=== PATIENT | female | born 1945 | race Caucasian/White ===

== ENCOUNTER → 2018-07-29 10:34 | Outpatient (CLI) | payer MEDICARE, SELFPAY ==
[2018-07-29 11:41] LABS: Add Manual Diff / Slide Review NO; Basophils Percent Auto 0.8 % (0-2); Eosinophils Percent Auto 4.5 % (2-4); Hematocrit 41.3 % (36-46); Hemoglobin 14.2 g/dL (12.0-16.0); Lymphocytes Percent Auto 41.5 % (25-40); Mean Corpuscular HGB Conc 34.3 % (30-36); Mean Corpuscular Hemoglobin 31.5 PG (26-34); Mean Corpuscular Volume 91.8 fL (80-100); Neutrophils Absolute Auto 2200 /uL (3000-5900); Neutrophils Percent Auto 45.2 % (50-75); Platelet Count 266 X10^3/uL (150-400); Red Cell Distribution Width 14.7 % (11.6-14.8); White Blood Cell Count 4.8 X10^3/uL (4.5-11.0)
[2018-07-29 11:54] LABS: Alanine Aminotransferase 21 IU/L (9-52); Albumin 4.7 g/dL (3.5-5.0); Albumin Globulin Ratio 1.6 (1.0-2.8); Alkaline Phosphatase 48 U/L (38-126); Aspartate Aminotransferase 37 IU/L (14-36); BUN Creatinine Ratio 21.3 (6-22); Bilirubin Total 1.7 mg/dL (0.2-1.3); Blood Urea Nitrogen 17 mg/dL (7-17); Carbon Dioxide 30 mmol/L (22-32); Chloride 100 mmol/L (98-107); Cholesterol 155 mg/dL (140-199); Estimated Glomerular Filt Rate > 60.0 mL/min (>60); Globulin 2.9 g/dL (1.7-4.1); Glucose 95 mg/dL (80-110); HDL Cholesterol 58 mg/dL (40-60); LDL Cholesterol Calculated 77 mg/dL (<100); Potassium 4.4 mmol/L (3.4-5.1); Sodium 143 mmol/L (137-145); Total Protein 7.6 g/dL (6.3-8.2); Triglycerides 101 mg/dL (35-150)
[2018-07-29 11:59] LABS: HEMOLYSIS 65 (0-50)
== END ==
PROVIDERS: PCP Family Medicine; Visit Provider Family Medicine
DX: E78.2 Mixed hyperlipidemia (principal); I10 Essential (primary) hypertension
CPT/HCPCS: 36415; 80053; 80061; 84443; 85025

== ENCOUNTER → 2018-08-07 10:42 | Outpatient (CLI) | payer MEDICARE, SELFPAY ==
--- NOTE | 2018-08-07 | DI.MG.S_ITS ---
BILATERAL DIGITAL SCREENING MAMMOGRAM 3D/2D WITH CAD: 08/07/2018 CLINICAL: Routine screening. Comparison is made to exams dated: 07/17/2017 mammogram, 05/15/2016 mammogram, and 05/02/2015 mammogram - [facility]. There are scattered fibroglandular elements in both breasts. Current study was also evaluated with a Computer Aided Detection (CAD) system. No significant masses, calcifications, or other findings are seen in either breast. There has been no significant interval change. IMPRESSION: NEGATIVE There is no mammographic evidence of malignancy. A 1 year screening mammogram is recommended. This exam was interpreted at Station ID: [id number]. NOTE: For mammograms, a report in lay terms will be sent to the patient. Approximately 15% of breast malignancies will not be visualized mammographically. In the management of a palpable breast mass, a negative mammogram must not discourage biopsy of a clinically suspicious lesion. Electronically Signed By: Waleska escobar/tony:08/09/2018 08:17:08 letter sent: Normal Exam ACR BI-RADS Category 1: Negative [id number]
== END ==
PROVIDERS: Family Provider Family Medicine; PCP Family Medicine; Visit Provider Family Medicine
DX: Z12.31 Encounter for screening mammogram for malignant neoplasm of breast (principal)
CPT/HCPCS: 77063; 77067

== ENCOUNTER → 2018-10-08 16:16 | Outpatient (CLI) | payer MEDICARE, SELFPAY | PROVIDERS: Family Provider Family Medicine; PCP Family Medicine; Visit Provider Physician Assistant | DX: N39.0 Urinary tract infection, site not specified (principal) | CPT/HCPCS: 87086 ==

== ENCOUNTER → 2018-10-19 15:35 | Outpatient (CLI) | payer MEDICARE, SELFPAY ==
[2018-10-19 16:27] LABS: Appearance Urine UA SL CLOUDY; Bilirubin Urine UA NEGATIVE (NEGATIVE); Color Urine UA YELLOW; Glucose Urine UA NEGATIVE (Normal); Ketones Urine UA TRACE (NEGATIVE); Leukocyte Esterase Urine UA NEGATIVE (NEGATIVE); Nitrite Urine UA POSITIVE (Negative); Occult Blood Urine UA NEGATIVE (Negative); Protein Urine UA NEGATIVE (Negative); Specific Gravity Urine UA 1.015 (1.000-1.035); Urobilinogen Urine UA 0.2 E.U./dL (0.2)
[2018-10-19 16:47] LABS: Bacteria Urine Many (>30); Culture Indicated Urine Specimen Cultured; RBC Urine 0-1/HPF (0-5/HPF); Squamous Epithelial Cell Urine 0-1 /HPF; WBC Urine 1-5/HPF (0-5/HPF)
== END ==
PROVIDERS: Family Provider Family Medicine; PCP Family Medicine; Visit Provider Family Medicine
DX: N34.3 Urethral syndrome, unspecified (principal)
CPT/HCPCS: 81001; 87077; 87086; 87186

== ENCOUNTER 2018-12-02 07:27 | Day surgery (SDC) | payer MEDICARE, SELFPAY ==
--- NOTE | 2018-12-02 | PATH_ITS ---
[facility] Accession Number: [id number] . 01 Material submitted: . BIOPSY AT 30CM . 02 Diagnosis: Colon, Biopsy at 30 cm: Tubular adenoma. MRV/12/03/2018 . 02 Electronically signed: . Elisa Rhodes MD, Pathologist NPI- [id number] . 01 Gross description: . Received one formalin-filled container labeled with the patient's name and labeled biopsy at 30 cm. The specimen consists of a 0.3 cm portion of tissue, entirely submitted in one cassette. ([id number]) /FRR . 02 Pathologist provided ICD-10: D12.6 . 02 CPT . 122943 Performed at: 01 [facility] [address] [address] [id number] MD Jerson Bernal MD Phone: [phone] Performed at: 02 [facility] [address] [place], [place] [id number] MD Elisa Rhodes MD Phone: [phone]
[2018-12-02 08:52] VITALS: BP 148/71; PULSE 77; RESP 15; TEMP 36.6; O2SAT 95; BMI 24.2
[2018-12-02] MEDS: SODIUM CHLORIDE 0.9% 1,000 ML 200 ML IV (09:30)
--- NOTE | 2018-12-02 10:33 | PM.HP.1 ---
History of Present Illness Date Patient Seen: 12/02/18 Time Patient Seen: 10:33 Chief complaint: [id number] SCREENING COLONOSCOPY Narrative: Wonderful 73 year old lady who presents for screening colonoscopy. She reports her last study was 12 years ago and was normal. She denies any new problems or symptoms related to the function of her GI tract. She reports she needs a colonoscopy as part of her health maintenance program. Patient History Medical History GERD (gastroesophageal reflux disease) (Chronic) Glaucoma (Chronic ~2010) Hypertension (Chronic) Measles (Resolved) Surgical History Anesthesia (Resolved) History of fusion of cervical spine (Resolved ~2009) History of spinal fusion (~2009) Status post delivery (~1963) Status post delivery (~1964) Status post cholecystectomy (~2004) Family & Social History Family History: Reviewed 12/02/18 by Cira Serrano MD Social History: household members none Meds Home Medications Medication Instructions Recorded Confirmed Type ASPIRIN (#ASPIRIN) Q DAY #0 05/27/11 11/11/18 History Calcium Carbonate/Vitamin D #0 05/27/11 11/11/18 History (#CALCIUM W/VITAMIN D 600 MG-125 IU) [ULTRA VITAMIN VM33] PO Q DAY #0 08/08/11 11/11/18 History [VITAMINS FOR HAIR] #0 08/08/11 11/11/18 History latanoprost [Xalatan] 1 drp OPHTH HS #0 08/08/11 11/11/18 History triamcinolone acetonide 0 gm TOPICAL BID #15 gm 06/01/12 11/11/18 Rx atenolol 100 mg tablet 100 mg PO Q DAY #90 tab 08/05/18 11/11/18 Rx atorvastatin 10 mg tablet 10 mg PO HS #90 tab 08/05/18 11/11/18 Rx fluocinolone 0.01 % shampoo 30 ml TOP DAILY #120 ml 08/05/18 11/11/18 Rx halcinonide 0.1 % topical ointment 1 applictn TOP BID #60 gram 08/05/18 11/11/18 Rx hydrochlorothiazide 25 mg tablet 12.5 mg PO QDAY #50 tab 08/05/18 11/11/18 Rx paroxetine 10 mg tablet 10 mg PO QDAY #90 tab 08/05/18 11/11/18 Rx omeprazole magnesium [Prilosec OTC] 20 mg PO Q DAY #90 tab 10/19/18 11/11/18 Rx ciprofloxacin 250 mg tablet 250 mg PO BID #20 tab 10/21/18 11/11/18 Rx Allergies Allergy/AdvReac Type Severity Reaction Status Date / Time Sulfa (Sulfonamide Allergy Mild prickly Verified 11/11/18 15:03 Antibiotics) sensation [SULFA (SULFONAMIDE ANTIBIOTICS)] Review of Systems Review of Systems All systems reviewed & are unremarkable except as noted in HPI and below Exam Vital Signs (past 8 hours): - 12/02/18 08:52 Temperature 97.9 F Pulse Rate 77 Respiratory Rate 15 Blood Pressure 148/71 H Pulse Oximetry 95 Oxygen Delivery Method Room Air Narrative Exam Narrative: Very pleasant thin lady in no obvious distress HEENT: Normocephalic and atraumatic, pupils equal round react to light accommodation with anicteric sclera Lungs: Clear bilaterally Heart: Regular rate and rhythm Abdomen: Soft, nontender, active bowel sounds Extremities: Warm and well perfused Assessment & Plan Plan: Assessment/Plan Narrative: [age] year lady here for which she hopes will be her last screening colonoscopy. We discussed the risks and benefits of the procedure the patient expressed a desire to complete it today.
[2018-12-02] MEDS: fentaNYL 250 MCG/5 ML INJ IV (10:42)
[2018-12-02] MEDS: MIDAZOLAM 5 MG/5 ML VIAL IV (10:43)
--- NOTE | 2018-12-02 11:00 | PM.OP.1 ---
Operative Date/Time/Diagnoses Date of procedure: 12/02/18 Time of procedure: 11:00 Pre-op diagnosis: Screening Post-op diagnosis: same Procedure & Clinicians Procedure: Colonoscopy to the cecum with polypectomy Same procedure as scheduled: Yes Surgeon: Cira Serrano Anesthesia Type: Sedation (Versed 4 mg; fentanyl 100 mcg) Operative Notes Findings: 1. Excellent prep 2. A single 3 mm sessile polyp at 30 cm removed with cold forceps and retained for pathology 3. Sigmoid diverticulosis without evidence of diverticulitis. 4. Grade 1 internal hemorrhoids with 1 enlarged external skin tag 5. No evidence of AV malformations Closure Type: not applicable Specimen(s): other (Polyp at 30 cm) Estimated Blood Loss (mL): 1 Procedure in detail: After obtaining informed consent, the patient was brought to the GI suite and placed in the left lateral decubitus position on the examination table. After placement of appropriate monitors, the patient was given incremental doses of Versed and Fentanyl until an appropriate level of sedation was achieved. A time out was held per SCOAP protocol. A digital rectal examination was performed and did not reveal any masses or obstructing lesions. The colonoscope was gently passed into the patient's anus and the entire colon navigated to the level of the cecum with minimal difficulty. Once in the cecum, the scope was withdrawn being sure to go before and beyond all mucosal folds and prominences and get an excellent examination. The findings are noted above. At the level of the rectal vault, the scope was retroflexed and the internal anal canal was examined. The scope was straightened and air aspirated from the colon. The instrument was removed from the patient's body and the procedure was concluded. The patient was allowed to awaken from sedation without difficulty and taken to the post-anesthesia care unit in good condition. Total sedation time 22 min Total withdrawal time 14 min 21 sec Complications: none Condition: stable Disposition: PACU Plan for aftercare: 1. Discharge to home 2. Plan for next colonoscopy in 5 years or as clinically indicated
[2018-12-02 11:02] VITALS: BP 108/49; PULSE 56; RESP 14; TEMP 36.2; O2SAT 99
[2018-12-02 11:07] VITALS: BP 105/43; PULSE 53; RESP 12; O2SAT 97
[2018-12-02 11:12] VITALS: BP 122/57; PULSE 55; RESP 18; O2SAT 97
[2018-12-02 11:18] VITALS: BP 142/99; PULSE 70; RESP 12; TEMP 36.2; O2SAT 96
[2018-12-02 11:22] VITALS: BP 140/77; PULSE 72; RESP 16; TEMP 36.4; O2SAT 100
== END 2018-12-02 11:37 ==
LOC: ENDO 07:28
PROVIDERS: Family Provider Family Medicine; PCP Family Medicine; Visit Provider Surgery
PROC: 0DJD8ZZ Inspection of Lower Intestinal Tract, Via Natural or Artificial Opening Endoscopic (ICD-10-PCS; CPT 45378; principal; 2018-12-02 09:45)
DX: Z12.11 Encounter for screening for malignant neoplasm of colon (principal); K57.30 Diverticulosis of large intestine without perforation or abscess without bleeding; K64.0 First degree hemorrhoids; K64.4 Residual hemorrhoidal skin tags; I10 Essential (primary) hypertension; D12.6 Benign neoplasm of colon, unspecified
CPT/HCPCS: 45380; 99152; J2250; J3010

== ENCOUNTER → 2019-01-19 11:57 | Outpatient (CLI) | payer MEDICARE, SELFPAY ==
[2019-01-19 12:01] LABS: RBC Urine None Seen (0-5/HPF)
[2019-01-19 12:42] LABS: Appearance Urine UA CLEAR; Bilirubin Urine UA NEGATIVE (NEGATIVE); Color Urine UA YELLOW; Glucose Urine UA NEGATIVE (Negative); Ketones Urine UA TRACE (NEGATIVE); Leukocyte Esterase Urine UA TRACE (NEGATIVE); Nitrite Urine UA NEGATIVE (Negative); Occult Blood Urine UA NEGATIVE (Negative); Protein Urine UA NEGATIVE (Negative); Specific Gravity Urine UA 1.025 (1.000-1.035); Urobilinogen Urine UA 0.2 E.U./dL (0.2)
[2019-01-19 13:02] LABS: WBC Urine 5-10/HPF (0-5/HPF)
[2019-01-19 13:03] LABS: Amorphous Sediment Urine 1+; Bacteria Urine Moderate (10-30); Culture Indicated Urine Specimen Cultured; Mucus Urine 1+ (Negative); Squamous Epithelial Cell Urine 5-10 /HPF
== END ==
PROVIDERS: PCP Family Medicine; Visit Provider Family Medicine
DX: N39.0 Urinary tract infection, site not specified (principal)
CPT/HCPCS: 81001; 87086

== ENCOUNTER → 2019-01-21 12:43 | Outpatient (CLI) | payer MEDICARE, SELFPAY ==
--- NOTE | 2019-01-21 12:47 | DI.CT.S_ITS ---
PROCEDURE: CT SINUS SCREEN WO CON INDICATIONS: chronic sinus issues TECHNIQUE: Noncontrast 3.0 mm axial images acquired from the frontal sinuses to the mid-sella, with coronal and sagittal reformats. For radiation dose reduction, the following was used: automated exposure control, adjustment of mA and/or kV according to patient size. COMPARISON: [facility], MR, BRAIN (IAC) W AND WO CONTRAST, 05/29/2010, 10:16. FINDINGS: Image quality: Excellent. Maxillary Sinuses: No bony remodeling or destruction. Sinuses are clear. Ethmoid Air Cells: No bony remodeling or destruction. Sinuses are clear. Sphenoid Sinuses: No bony remodeling or destruction. Sinuses are clear. Frontal Sinuses: No bony remodeling or destruction. Sinuses are clear. Ostiomeatal Complexes: Ostiomeatal complexes are patent. 50 mm right and 12 mm left Angelina cells. Miscellaneous: Visualized intra-orbital contents are normal. No santosh bullosa or paradoxical turbinate curvature. Mild leftward nasal septal deviation. IMPRESSION: 1. No significant sinusitis. 2. Mild leftward nasal septal deviation. 3. Bilateral Angelina cells. Dictated by: Odin Devlin M.D. on 01/21/2019 at 13:31 Approved by: Odin Devlin M.D. on 01/21/2019 at 13:33
== END ==
PROVIDERS: Family Provider Otolaryngology; PCP Family Medicine; Visit Provider Family Medicine
DX: J32.9 Chronic sinusitis, unspecified (principal); J34.2 Deviated nasal septum
CPT/HCPCS: 70486

== ENCOUNTER → 2019-04-13 09:24 | Outpatient (CLI) | payer MEDICARE, SELFPAY ==
[2019-04-13 11:03] LABS: Add Manual Diff / Slide Review NO; Basophils Absolute Auto 0 /uL (0-100); Basophils Percent Auto 0.6 % (0-2); Eosinophils Absolute Auto 200 /uL (0-450); Eosinophils Percent Auto 4.2 % (2-4); Hematocrit 42.1 % (36-46); Hemoglobin 13.8 g/dL (12.0-16.0); Lymphocytes Absolute Auto 1700 /uL (1100-4500); Lymphocytes Percent Auto 37.9 % (25-40); Mean Corpuscular HGB Conc 32.9 % (30-36); Mean Corpuscular Volume 94.2 fL (80-100); Monocytes Absolute Auto 700 /uL (0-900); Monocytes Percent Auto 16.5 % (3-14); Neutrophils Absolute Auto 1800 /uL (1500-7000); Neutrophils Percent Auto 40.8 % (50-75); Platelet Count 250 X10^3/uL (150-400); Red Blood Cell Count 4.46 X10^6/uL (4.0-5.2); Red Cell Distribution Width 14.5 % (11.6-14.8); White Blood Cell Count 4.5 X10^3/uL (4.5-11.0)
[2019-04-13 11:38] LABS: Thyroid Stimulating Hormone 1.23 uIU/mL (0.47-4.68)
== END ==
PROVIDERS: Family Provider Otolaryngology; PCP Family Medicine; Visit Provider Family Medicine
DX: R11.2 Nausea with vomiting, unspecified (principal); R15.9 Full incontinence of feces; R19.7 Diarrhea, unspecified; E78.2 Mixed hyperlipidemia; I10 Essential (primary) hypertension; Z13.29 Encounter for screening for other suspected endocrine disorder; Z13.6 Encounter for screening for cardiovascular disorders
CPT/HCPCS: 36415; 83735; 84443; 85025

== ENCOUNTER → 2019-04-14 13:59 | Outpatient (CLI) | payer MEDICARE, SELFPAY | PROVIDERS: PCP Family Medicine; Visit Provider Family Medicine ==

== ENCOUNTER → 2019-04-15 16:49 | Outpatient (CLI) | payer MEDICARE, SELFPAY ==
[2019-04-15 21:03] LABS: Enteropathogenic E.coli Detected (Not Detect); Norovirus GI/GII Detected (Not Detect)
[2019-04-15 21:04] LABS: Adenovirus F 40/41 Not Detected (Not Detect); Astrovirus Not Detected (Not Detect); Campylobacter Not Detected (Not Detect); Clostridium difficile toxin AB Not Detected (Not Detect); Cryptosporidium Not Detected (Not Detect); Cyclospora cayetanensis Not Detected (Not Detect); Entamoeba histolytica Not Detected (Not Detect); Enteroaggregative E.coli Not Detected (Not Detect); Enterotoxigenic E.coli It/st Not Detected (Not Detect); Giardia lamblia Not Detected (Not Detect); Plesiomonsa shigelloides Not Detected (Not Detect); Rotavirus A Not Detected (Not Detect); Salmonella Not Detected (Not Detect); Sapovirus Not Detected (Not Detect); Shiga-like toxin-prod E.coli Not Detected (Not Detect); Shigella/Enteroinvasive E.coli Not Detected (Not Detect); Vibrio Not Detected (Not Detect); Vibrio cholerae Not Detected (Not Detect); Yersinia enterocolitica Not Detected (Not Detect)
== END ==
PROVIDERS: PCP Family Medicine; Visit Provider Family Medicine
DX: R11.2 Nausea with vomiting, unspecified (principal); R15.9 Full incontinence of feces; R19.7 Diarrhea, unspecified
CPT/HCPCS: 87507

== ENCOUNTER → 2019-08-09 08:36 | Outpatient (CLI) | payer MEDICARE, SELFPAY ==
[2019-08-09 09:27] LABS: Alanine Aminotransferase 23 IU/L (9-52); Albumin 4.5 g/dL (3.5-5.0); Albumin Globulin Ratio 1.7 (1.0-2.8); Alkaline Phosphatase 57 U/L (38-126); Aspartate Aminotransferase 37 IU/L (14-36); BUN Creatinine Ratio 22.5 (6-22); Bilirubin Total 1.2 mg/dL (0.2-1.3); Blood Urea Nitrogen 18 mg/dL (7-17); Calcium 10.2 mg/dL (8.4-10.2); Carbon Dioxide 34 mmol/L (22-32); Chloride 100 mmol/L (98-107); Cholesterol 156 mg/dL (140-199); Estimated Glomerular Filt Rate > 60.0 mL/min (>60); Globulin 2.6 g/dL (1.7-4.1); Glucose 93 mg/dL (80-110); HDL Cholesterol 84 mg/dL (40-60); HEMOLYSIS < 15 (0-50); LDL Cholesterol Calculated 48 mg/dL (<100); Potassium 4.1 mmol/L (3.4-5.1); Sodium 140 mmol/L (137-145); Total Protein 7.1 g/dL (6.3-8.2); Triglycerides 121 mg/dL (35-150)
== END ==
PROVIDERS: PCP Family Medicine; Visit Provider Family Medicine
DX: E78.2 Mixed hyperlipidemia (principal); I10 Essential (primary) hypertension
CPT/HCPCS: 36415; 80053; 80061

== ENCOUNTER → 2019-09-29 16:44 | Outpatient (CLI) | payer MEDICARE, SELFPAY ==
[2019-09-29 17:23] LABS: Appearance Urine UA SL CLOUDY; Bilirubin Urine UA NEGATIVE (NEGATIVE); Color Urine UA YELLOW; Glucose Urine UA NEGATIVE (Negative); Ketones Urine UA TRACE (NEGATIVE); Leukocyte Esterase Urine UA TRACE (NEGATIVE); Nitrite Urine UA NEGATIVE (Negative); Occult Blood Urine UA TRACE-LYSED (Negative); Protein Urine UA TRACE (Negative); Specific Gravity Urine UA 1.015 (1.000-1.035); Urobilinogen Urine UA 0.2 E.U./dL (0.2)
[2019-09-29 17:25] LABS: pH Urine UA 5.5 (4.5-8.0)
[2019-09-29 17:31] LABS: Amorphous Sediment Urine 1+; Bacteria Urine Few (2-10); Culture Indicated Urine Specimen Cultured; Hyaline Casts Urine 10-30/LPF; RBC Urine 1-5/HPF (0-5/HPF); Squamous Epithelial Cell Urine 1-5 /HPF (0-5/HPF); Transitional Epi Cells Urine 1-5/HPF (0-5/HPF); WBC Urine 5-10/HPF (0-5/HPF)
== END ==
PROVIDERS: PCP Family Medicine; Visit Provider Family Medicine
DX: R39.9 Unspecified symptoms and signs involving the genitourinary system (principal)
CPT/HCPCS: 81001; 87077; 87086; 87147

== ENCOUNTER → 2019-10-19 16:41 | Outpatient (CLI) | payer MEDICARE, SELFPAY ==
[2019-10-19 17:47] LABS: Appearance Urine UA CLEAR; Bilirubin Urine UA NEGATIVE (NEGATIVE); Color Urine UA YELLOW; Glucose Urine UA NEGATIVE (Negative); Ketones Urine UA NEGATIVE (NEGATIVE); Leukocyte Esterase Urine UA 1+ (NEGATIVE); Nitrite Urine UA NEGATIVE (Negative); Occult Blood Urine UA TRACE-LYSED (Negative); Protein Urine UA NEGATIVE (Negative); Specific Gravity Urine UA <=1.005 (1.000-1.035); Urobilinogen Urine UA 0.2 E.U./dL (0.2)
[2019-10-19 18:34] LABS: Bacteria Urine Few (2-10); Culture Indicated Urine Specimen Cultured; RBC Urine 0-1/HPF (0-5/HPF); Squamous Epithelial Cell Urine 1-5 /HPF (0-5/HPF); WBC Urine 10-30/HPF (0-5/HPF)
== END ==
PROVIDERS: PCP Family Medicine; Visit Provider Family Medicine
DX: R39.9 Unspecified symptoms and signs involving the genitourinary system (principal)
CPT/HCPCS: 81001; 87077; 87086; 87186

== ENCOUNTER → 2019-12-06 14:33 | Outpatient (CLI) | payer MEDICARE, SELFPAY | PROVIDERS: PCP Family Medicine; Visit Provider Family Medicine | DX: N39.0 Urinary tract infection, site not specified (principal) | CPT/HCPCS: 87086 ==

== ENCOUNTER → 2020-01-03 09:36 | Outpatient (CLI) | payer MEDICARE, SELFPAY ==
--- NOTE | 2020-01-03 | DI.US.S_ITS ---
PROCEDURE: US RENAL COMPLETE INDICATIONS: UTI TECHNIQUE: Real-time scanning was performed of the kidneys and bladder, with image documentation. COMPARISON: [facility], US, ABDOMEN COMPLETE, 07/11/2011, 9:16. FINDINGS: Kidneys: Kidneys demonstrate minimal atrophy. Right kidney measures 10.4 cm long; left kidney measures 10.8 cm long. Right renal cortical thickness is 0.7 cm; left renal cortical thickness is 1.5 cm. Renal cortical echotexture is normal. No hydronephrosis or nephrolithiasis. No suspicious solid mass lesions. Bladder: Pre-void bladder volume is 99 mL. Post-void residual is 2 mL. Pre-void images demonstrate no intraluminal masses or stones. On pre-void images, neither ureteral jets are noted with color Doppler interrogation. (Of note, ureteral jets may not be detectable in up to 25% of cases due to insufficient differences in specific gravity between ureteral and bladder urine). Miscellaneous: No free pelvic fluid. IMPRESSION: Unremarkable exam. Dictated by: Fozia Corrales M.D. on 01/03/2020 at 11:13 Approved by: Fozia Corrales M.D. on 01/03/2020 at 11:14
== END ==
PROVIDERS: PCP Family Medicine; Referring Provider Physician Assistant; Visit Provider Physician Assistant
DX: N39.0 Urinary tract infection, site not specified (principal)
CPT/HCPCS: 76770

== ENCOUNTER → 2020-07-18 15:55 | Outpatient (CLI) | payer MEDICARE, SELFPAY ==
[2020-07-19 16:36] LABS: COVID19 Sendout Not Detected (Not Detected)
== END ==
PROVIDERS: PCP Family Medicine; Visit Provider Physician Assistant
DX: Z11.59 Encounter for screening for other viral diseases (principal)
CPT/HCPCS: 87635

== ENCOUNTER → 2020-08-07 10:09 | Outpatient (CLI) | payer MEDICARE, SELFPAY ==
[2020-08-07 10:56] LABS: Add Manual Diff / Slide Review NO; Basophils Absolute Auto 100 /uL (0-100); Eosinophils Absolute Auto 300 /uL (0-450); Hemoglobin 13.1 g/dL (12.0-16.0); Lymphocytes Absolute Auto 2000 /uL (1100-4500); Lymphocytes Percent Auto 31.5 % (25-40); Mean Corpuscular HGB Conc 33.5 % (30-36); Mean Corpuscular Hemoglobin 31.1 PG (26-34); Mean Corpuscular Volume 92.9 fL (80-100); Monocytes Absolute Auto 600 /uL (0-900); Monocytes Percent Auto 8.8 % (3-14); Neutrophils Absolute Auto 3400 /uL (1500-7000); Neutrophils Percent Auto 54.7 % (50-75); Platelet Count 298 X10^3/uL (150-400); Red Blood Cell Count 4.21 X10^6/uL (4.0-5.2); Red Cell Distribution Width 14.7 % (11.6-14.8); White Blood Cell Count 6.3 X10^3/uL (4.5-11.0)
[2020-08-07 11:13] LABS: Alanine Aminotransferase 14 IU/L (<35); Albumin 4.4 g/dL (3.5-5.0); Albumin Globulin Ratio 1.6 (1.0-2.8); Alkaline Phosphatase 70 U/L (38-126); Aspartate Aminotransferase 27 IU/L (14-36); BUN Creatinine Ratio 23.8 (6-22); Bilirubin Total 0.9 mg/dL (0.2-1.3); Blood Urea Nitrogen 20 mg/dL (7-17); Calcium 10.2 mg/dL (8.4-10.2); Carbon Dioxide 34 mmol/L (22-32); Chloride 100 mmol/L (98-107); Cholesterol 141 mg/dL (140-199); Estimated Glomerular Filt Rate > 60.0 mL/min (>60); Globulin 2.7 g/dL (1.7-4.1); Glucose 107 mg/dL (80-110); HDL Cholesterol 66 mg/dL (40-60); HEMOLYSIS < 15 (0-50); LDL Cholesterol Calculated 58 mg/dL (<100); Potassium 4.7 mmol/L (3.4-5.1); Sodium 141 mmol/L (137-145); Total Protein 7.1 g/dL (6.3-8.2); Triglycerides 87 mg/dL (35-150)
[2020-08-07 11:44] LABS: Thyroid Stimulating Hormone 0.503 uIU/mL (0.47-4.68)
== END ==
PROVIDERS: PCP Family Medicine; Referring Provider Family Medicine; Visit Provider Family Medicine
DX: E78.2 Mixed hyperlipidemia (principal); I10 Essential (primary) hypertension; Z13.29 Encounter for screening for other suspected endocrine disorder
CPT/HCPCS: 36415; 80053; 80061; 84443; 85025

== ENCOUNTER → 2020-08-13 14:31 | Outpatient (CLI) | payer MEDICARE, SELFPAY | PROVIDERS: PCP Family Medicine; Visit Provider Family Medicine | DX: Z87.440 Personal history of urinary (tract) infections (principal) | CPT/HCPCS: 87077; 87086; 87186 ==

== ENCOUNTER → 2020-08-29 13:43 | Outpatient (CLI) | payer MEDICARE, SELFPAY ==
[2020-08-29 14:34] LABS: Bacteria Urine Moderate (10-30); Squamous Epithelial Cell Urine 1-5 /HPF (0-5/HPF); Transitional Epi Cells Urine 1-5/HPF (0-5/HPF)
[2020-08-29 14:35] LABS: Culture Indicated Urine Specimen Cultured; RBC Urine 1-5/HPF (0-5/HPF); WBC Urine 1-5/HPF (0-5/HPF)
== END ==
PROVIDERS: PCP Family Medicine; Referring Provider Family Medicine; Visit Provider Family Medicine
DX: Z87.440 Personal history of urinary (tract) infections (principal)
CPT/HCPCS: 81015; 87086

== ENCOUNTER → 2021-02-06 09:32 | Outpatient (CLI) | payer MEDICARE, SELFPAY ==
[2021-02-06 10:01] LABS: Hematocrit 39.5 % (36-46); Hemoglobin 13.4 g/dL (12.0-16.0); Mean Corpuscular Hemoglobin 31.9 PG (26-34); Platelet Count 259 X10^3/uL (150-400); Red Cell Distribution Width 14.6 % (11.6-14.8)
[2021-02-06 10:30] LABS: Alanine Aminotransferase 17 IU/L (<35); Albumin 4.6 g/dL (3.5-5.0); Albumin Globulin Ratio 1.8 (1.0-2.8); Alkaline Phosphatase 57 U/L (38-126); Aspartate Aminotransferase 31 IU/L (14-36); BUN Creatinine Ratio 20.2 (6-22); Bilirubin Total 1.1 mg/dL (0.2-1.3); Blood Urea Nitrogen 17 mg/dL (7-17); Carbon Dioxide 32 mmol/L (22-32); Chloride 98 mmol/L (98-107); Cholesterol 180 mg/dL (140-199); Estimated Glomerular Filt Rate > 60.0 mL/min (>60); Globulin 2.6 g/dL (1.7-4.1); Glucose 113 mg/dL (80-110); HDL Cholesterol 65 mg/dL (40-60); HEMOLYSIS < 15 (0-50); LDL Cholesterol Calculated 81 mg/dL (<100); Potassium 3.6 mmol/L (3.4-5.1); Sodium 138 mmol/L (137-145); Total Protein 7.2 g/dL (6.3-8.2); Triglycerides 172 mg/dL (35-150)
[2021-02-07 17:28] LABS: Hemoglobin A1C% w Est Avg Glu 5.6 % (4.0-6.0)
== END ==
PROVIDERS: PCP Nurse Practitioner Family; Referring Provider Nurse Practitioner Family; Visit Provider Nurse Practitioner Family
DX: I10 Essential (primary) hypertension (principal); E78.2 Mixed hyperlipidemia; R73.09 Other abnormal glucose
CPT/HCPCS: 36415; 80053; 80061; 83036; 85027

== ENCOUNTER → 2021-07-24 14:02 | Outpatient (CLI) | payer MEDICARE, SELFPAY ==
[2021-07-24 14:22] LABS: Appearance Urine UA CLOUDY; Bilirubin Urine UA NEGATIVE (NEGATIVE); Color Urine UA YELLOW; Glucose Urine UA NEGATIVE (Negative); Ketones Urine UA NEGATIVE (NEGATIVE); Leukocyte Esterase Urine UA 2+ (NEGATIVE); Nitrite Urine UA NEGATIVE (Negative); Occult Blood Urine UA TRACE-LYSED (Negative); Protein Urine UA TRACE (Negative); Urobilinogen Urine UA 0.2 E.U./dL (0.2)
[2021-07-24 14:45] LABS: RBC Urine 0-1/HPF (0-5/HPF); WBC Urine 30-100/HPF (0-5/HPF)
[2021-07-24 14:46] LABS: Bacteria Urine Occasional (0-1); Culture Indicated Urine Specimen Cultured; Renal Epithelial Cells Urine 0-1/HPF (0-1/HPF); Squamous Epithelial Cell Urine 0-1 /HPF (0-5/HPF); Transitional Epi Cells Urine 0-1/HPF (0-5/HPF)
== END ==
PROVIDERS: PCP Nurse Practitioner Family; Referring Provider Nurse Practitioner Family; Visit Provider Nurse Practitioner Family
DX: R30.0 Dysuria (principal)
CPT/HCPCS: 81001; 87077; 87086; 87186

== ENCOUNTER → 2021-07-27 14:00 | Outpatient (CLI) | payer MEDICARE, SELFPAY ==
[2021-07-27 14:51] LABS: COVID19 -Nasal RAPID Negative (Negative)
== END ==
PROVIDERS: PCP Nurse Practitioner Family; Visit Provider Nurse Practitioner
DX: Z20.822 Contact with and (suspected) exposure to COVID-19 (principal); R19.7 Diarrhea, unspecified; R11.10 Vomiting, unspecified
CPT/HCPCS: 87635

== ENCOUNTER → 2021-07-31 08:06 | Outpatient (CLI) | payer MEDICARE, SELFPAY ==
[2021-07-31 09:52] LABS: Alanine Aminotransferase 17 IU/L (<35); Albumin 4.5 g/dL (3.5-5.0); Albumin Globulin Ratio 1.8 (1.0-2.8); Alkaline Phosphatase 56 U/L (38-126); Aspartate Aminotransferase 26 IU/L (14-36); Bilirubin Total 1.4 mg/dL (0.2-1.3); Blood Urea Nitrogen 17 mg/dL (7-17); Calcium 9.9 mg/dL (8.4-10.2); Carbon Dioxide 30 mmol/L (22-32); Chloride 99 mmol/L (98-107); Cholesterol 139 mg/dL (140-199); Globulin 2.5 g/dL (1.7-4.1); Glucose 101 mg/dL (80-110); HDL Cholesterol 46 mg/dL (40-60); HEMOLYSIS < 15 (0-50); LDL Cholesterol Calculated 71 mg/dL (<100); Potassium 3.6 mmol/L (3.4-5.1); Sodium 138 mmol/L (137-145); Triglycerides 109 mg/dL (35-150)
[2021-07-31 09:53] LABS: BUN Creatinine Ratio 19.5 (6-22); Estimated Glomerular Filt Rate > 60.0 mL/min (>60)
[2021-07-31 10:04] LABS: Hematocrit 37.9 % (36-46); Hemoglobin 12.8 g/dL (12.0-16.0); Mean Corpuscular HGB Conc 33.6 % (30-36); Mean Corpuscular Hemoglobin 31.6 PG (26-34); Mean Corpuscular Volume 93.8 fL (80-100); Platelet Count 251 X10^3/uL (150-400); Red Blood Cell Count 4.04 X10^6/uL (4.0-5.2); Red Cell Distribution Width 14.1 % (11.6-14.8)
== END ==
PROVIDERS: PCP Nurse Practitioner Family; Referring Provider Nurse Practitioner Family; Visit Provider Nurse Practitioner Family
DX: Z00.00 Encounter for general adult medical examination without abnormal findings (principal); E78.2 Mixed hyperlipidemia; I10 Essential (primary) hypertension
CPT/HCPCS: 36415; 80053; 80061; 85027

== ENCOUNTER → 2022-07-01 09:18 | Outpatient (CLI) | payer MEDICARE, SELFPAY ==
[2022-07-01 11:54] LABS: Adenovirus F 40/41 Not Detected (Not Detect); Astrovirus Not Detected (Not Detect); Campylobacter Not Detected (Not Detect); Clostridium difficile toxin AB Not Detected (Not Detect); Cryptosporidium Not Detected (Not Detect); Cyclospora cayetanensis Not Detected (Not Detect); Entamoeba histolytica Not Detected (Not Detect); Enteroaggregative E.coli Not Detected (Not Detect); Enteropathogenic E.coli Not Detected (Not Detect); Enterotoxigenic E.coli It/st Not Detected (Not Detect); Giardia lamblia Not Detected (Not Detect); Norovirus GI/GII Not Detected (Not Detect); Plesiomonsa shigelloides Not Detected (Not Detect); Rotavirus A Not Detected (Not Detect); Salmonella Not Detected (Not Detect); Sapovirus Not Detected (Not Detect); Shiga-like toxin-prod E.coli Not Detected (Not Detect); Shigella/Enteroinvasive E.coli Not Detected (Not Detect); Vibrio Not Detected (Not Detect); Vibrio cholerae Not Detected (Not Detect); Yersinia enterocolitica Not Detected (Not Detect)
== END ==
PROVIDERS: Student in an Organized Health Care Education/Training Program; PCP Pediatrics; Referring Provider Student in an Organized Health Care Education/Training Program; Visit Provider Student in an Organized Health Care Education/Training Program
DX: R19.7 Diarrhea, unspecified (principal)
CPT/HCPCS: 87507

== ENCOUNTER → 2022-07-03 10:34 | Outpatient (CLI) | payer MEDICARE, SELFPAY ==
[2022-07-03 11:40] LABS: Add Manual Diff / Slide Review NO; Basophils Absolute Auto 0 /uL (0-100); Basophils Percent Auto 0.6 % (0-2); Eosinophils Absolute Auto 100 /uL (0-450); Eosinophils Percent Auto 1.4 % (2-4); Hemoglobin 14.1 g/dL (12.0-16.0); Lymphocytes Absolute Auto 1700 /uL (1100-4500); Lymphocytes Percent Auto 20.8 % (25-40); Mean Corpuscular HGB Conc 34.4 % (30-36); Mean Corpuscular Hemoglobin 32.3 PG (26-34); Mean Corpuscular Volume 93.8 fL (80-100); Monocytes Absolute Auto 500 /uL (0-900); Monocytes Percent Auto 5.8 % (3-14); Neutrophils Absolute Auto 5700 /uL (1500-7000); Neutrophils Percent Auto 71.4 % (50-75); Platelet Count 255 X10^3/uL (150-400); Red Blood Cell Count 4.37 X10^6/uL (4.0-5.2)
[2022-07-03 12:11] LABS: Alanine Aminotransferase 13 IU/L (<35); Albumin 4.6 g/dL (3.5-5.0); Albumin Globulin Ratio 1.7 (1.0-2.8); Alkaline Phosphatase 61 U/L (38-126); Aspartate Aminotransferase 27 IU/L (14-36); BUN Creatinine Ratio 14.9 (6-22); Bilirubin Total 1.2 mg/dL (0.2-1.3); Blood Urea Nitrogen 11 mg/dL (7-17); Calcium 10.1 mg/dL (8.4-10.2); Carbon Dioxide 34 mmol/L (22-32); Chloride 99 mmol/L (98-107); Estimated Glomerular Filt Rate > 60 mL/min (>60); Globulin 2.7 g/dL (1.7-4.1); Glucose 120 mg/dL (80-110); HEMOLYSIS < 15 (0-50); Potassium 4.4 mmol/L (3.4-5.1); Sodium 139 mmol/L (137-145); Total Protein 7.3 g/dL (6.3-8.2)
[2022-07-03 12:41] LABS: TSH w/ Reflex to FT4 0.74 uIU/mL (0.47-4.68)
[2022-07-03 14:44] LABS: Appearance Urine UA CLEAR; Bilirubin Urine UA NEGATIVE (NEGATIVE); Color Urine UA YELLOW; Glucose Urine UA NEGATIVE (Negative); Ketones Urine UA NEGATIVE (NEGATIVE); Leukocyte Esterase Urine UA TRACE (NEGATIVE); Nitrite Urine UA NEGATIVE (Negative); Occult Blood Urine UA TRACE-LYSED (Negative); Protein Urine UA NEGATIVE (Negative); Specific Gravity Urine UA 1.015 (1.000-1.035); Urobilinogen Urine UA 0.2 E.U./dL (0.2)
[2022-07-03 14:49] LABS: pH Urine UA 7.5 (4.5-8.0)
[2022-07-03 16:03] LABS: Bacteria Urine None Seen; RBC Urine None Seen (0-5/HPF); Squamous Epithelial Cell Urine None Seen (0-5/HPF); WBC Urine 1-5/HPF (0-5/HPF)
[2022-07-03 16:04] LABS: Culture Indicated Urine Cult Not Indicated
== END ==
PROVIDERS: PCP Pediatrics; Referring Provider Pediatrics; Visit Provider Pediatrics
DX: R42 Dizziness and giddiness (principal); R53.83 Other fatigue; K21.9 Gastro-esophageal reflux disease without esophagitis; K92.1 Melena
CPT/HCPCS: 36415; 80053; 81001; 84443; 85025

== ENCOUNTER → 2023-01-27 09:09 | Outpatient (CLI) | payer MEDICARE, SELFPAY ==
--- NOTE | 2023-01-27 | DI.MRI.S_ITS ---
PROCEDURE: MR CERVICAL SPINE WO CON INDICATIONS: radiculopathy, cervical region TECHNIQUE: Noncontrast sagittal T1 spin echo and T2 fast spin echo, sagittal STIR, foraminal oblique sagittal T2 fast spin echo, and axial gradient echo or T2 fast spin echo through the cervical spine. COMPARISON: [facility], CR, XR CERVICAL SPINE 2 OR 3 VIEWS, 09/09/2022, 8:52. FINDINGS: Image quality: Excellent. Alignment and Curvature: Grade 1 anterolisthesis of C3-4. Leftward curvature of the cervical spine. Bone: ACDF at C4-5. Corpectomy of C3-4. Marrow demonstrates normal overall signal. Spinal Cord: Visualized spinal cord has normal size and signal. No cerebellar tonsillar herniation. Paraspinous Soft Tissues: No paravertebral masses. Prevertebral soft tissues are normal in thickness. C2-C3: No significant disc bulge. The foramina and central canal are patent. C3-C4: Uncovertebral hypertrophy on the right causes moderate right foraminal stenosis. The left foramen is patent. Diffuse disc bulge, grade 1 anterolisthesis, facet hypertrophy, and ligamentum flavum hypertrophy cause severe bilateral foraminal stenosis and severe central canal stenosis. C4-C5: Postoperative changes of fusion at this level. The foramina have mild stenosis. The central canal is patent. C5-C6: Loss of the disc space. Severe disc space narrowing, disc osteophytes, and facet hypertrophy cause moderate bilateral foraminal stenosis and mild central canal stenosis. C6-C7: Loss of the disc space. Diffuse disc bulge with a left paracentral disc protrusion which indents the anterior thecal sac. There is mild right and moderate left foraminal stenosis. The central canal has moderate stenosis. C7-T1: Loss of the disc space. Diffuse disc bulge and disc osteophytes. Moderate bilateral foraminal stenosis. The central canal has moderate stenosis. IMPRESSION: 1. Multilevel lumbar spondylosis causing foraminal and central canal stenosis as detailed above. 2. Central canal stenosis is severe at C2-3 and moderate at C6-7 and C7-T1. 3. No abnormal cord signal. Dictated by: Jann Pearce M.D. on 01/27/2023 at 11:37 Approved by: Jann Pearce M.D. on 01/27/2023 at 11:52
== END ==
PROVIDERS: PCP Pediatrics; Referring Provider Physical Medicine & Rehabilitation; Visit Provider Physical Medicine & Rehabilitation
DX: M47.812 Spondylosis without myelopathy or radiculopathy, cervical region (principal); M48.02 Spinal stenosis, cervical region; Z98.1 Arthrodesis status
CPT/HCPCS: 72141

== ENCOUNTER → 2023-02-05 09:02 | Outpatient (CLI) | payer MEDICARE, SELFPAY ==
[2023-02-05 10:49] LABS: Alanine Aminotransferase 19 IU/L (<35); Albumin 4.3 g/dL (3.5-5.0); Albumin Globulin Ratio 1.6 (1.0-2.8); Alkaline Phosphatase 59 U/L (38-126); Aspartate Aminotransferase 30 IU/L (14-36); Bilirubin Total 1.4 mg/dL (0.2-1.3); Blood Urea Nitrogen 18 mg/dL (7-17); Carbon Dioxide 35 mmol/L (22-32); Chloride 98 mmol/L (98-107); Cholesterol 171 mg/dL (140-199); Estimated Glomerular Filt Rate > 60 mL/min (>60); Globulin 2.7 g/dL (1.7-4.1); Glucose 97 mg/dL (80-110); HDL Cholesterol 69 mg/dL (40-60); HEMOLYSIS < 15 (0-50); LDL Cholesterol Calculated 78 mg/dL (<100); Sodium 140 mmol/L (137-145); Triglycerides 119 mg/dL (35-150)
[2023-02-05 10:59] LABS: Creatinine Urine Random 84.4 mg/dL
[2023-02-05 11:03] LABS: Microalbumin Urine Random 3.3 mg/dL (0-1.6)
== END ==
PROVIDERS: PCP Family Medicine; Referring Provider Family Medicine; Visit Provider Family Medicine
DX: E78.2 Mixed hyperlipidemia (principal); I10 Essential (primary) hypertension; R73.9 Hyperglycemia, unspecified
CPT/HCPCS: 36415; 80053; 80061; 82043; 82306; 82570

== ENCOUNTER → 2023-07-07 11:18 | Outpatient (CLI) | payer MEDICARE, SELFPAY ==
[2023-07-07 12:31] LABS: Appearance Urine UA CLEAR; Bilirubin Urine UA NEGATIVE (NEGATIVE); Color Urine UA YELLOW; Glucose Urine UA NEGATIVE (Negative); Ketones Urine UA NEGATIVE (NEGATIVE); Leukocyte Esterase Urine UA 3+ (NEGATIVE); Nitrite Urine UA NEGATIVE (Negative); Occult Blood Urine UA TRACE-INTACT (Negative); Protein Urine UA NEGATIVE (Negative); Specific Gravity Urine UA <=1.005 (1.000-1.035); Urobilinogen Urine UA 0.2 E.U./dL (0.2)
[2023-07-07 13:04] LABS: pH Urine UA 6.5 (4.5-8.0)
[2023-07-07 13:08] LABS: Bacteria Urine Few (2-10); RBC Urine 0-1/HPF (0-5/HPF); Squamous Epithelial Cell Urine 0-1 /HPF (0-5/HPF); WBC Urine >100/HPF (0-5/HPF)
[2023-07-07 13:09] LABS: Culture Indicated Urine Specimen Cultured
== END ==
PROVIDERS: PCP Family Medicine; Referring Provider Family Medicine; Visit Provider Family Medicine
DX: R30.0 Dysuria (principal); R35.0 Frequency of micturition; R39.15 Urgency of urination
CPT/HCPCS: 81001; 87086

== ENCOUNTER 2024-01-11 08:45 | Day surgery (SDC) | payer MEDICARE, SELFPAY ==
--- NOTE | 2024-01-11 | PATH_ITS ---
[facility] Accession Number: [id number] No. of containers..03 Tissue . 01 Material submitted: . PART A: colon - CECUM POLYP PART B: colon - ASCENDING COLON POLYP X2 PART C: body - RANDOM BIOPSIES . 01 Diagnosis: A. CECAL POLYP: Tubular adenoma. . B. ASCENDING COLON POLYPS: Tubular/tubulovillous adenomas (two polyps removed). . C. RANDOM COLON, BIOPSIES: Colonic mucosa with no diagnostic abnormality. Negative for active, chronic, and microscopic colitis. Negative for dysplasia and malignancy. . MRV 01/13/2024 1550 Local . 01 Electronically signed: . Toni Calvert MD, PhD, Pathologist NPI- [id number] . 01 Gross description: . Part A: CECUM POLYP: Received in formalin is 1 fragment(s) of huang, soft tissue measuring 0.4 x 0.3 x 0.2 cm submitted entirely in 1 cassette(s) Part B: ASCENDING COLON POLYP X2: Received in formalin are multiple fragment(s) of huang, soft tissue measuring 0.1 x 0.1 x 0.1 cm to 1.0 x 0.7 x 0.6 cm submitted entirely in 1 cassette(s) Part C: RANDOM BIOPSIES: Received in formalin are 2 fragment(s) of huang, soft tissue measuring 0.1 x 0.1 x 0.1 cm to 0.2 x 0.2 x 0.2 cm submitted entirely in 1 cassette(s) /LALITO 01/12/2024 2204 Local . 01 Pathologist provided ICD-10: D12.0, D12.2, R19.7 . 01 CPT . 691974, 094266, 834658 Specimen Comment: A courtesy copy of this report has been sent to [phone] Performed at: 01 [facility] [address], [place], [place] [id number] MD Jerson Bernal MD Phone: [phone]
--- NOTE | 2024-01-11 09:22 | P.HP_ITS ---
History of Present Illness History of Present Illness Date Patient Seen: 01/11/24 Time Patient Seen: 09:22 Chief complaint: Dx Colonoscopy Narrative: 78-year-old female seen in clinic back in July. Fiber for the most part seemed to have resolved her bowel difficulties. However even prior to the prep the other day she had an unexpected spell of diarrhea. She indicates that her body weight is stable. She has a personal history of colon polyps. She prese [facility] for updated colonoscopy [facility] Medical History Fatigue Dizziness Vertigo Seasonal allergies Chicken pox Anxiety (~2009) Measles Glaucoma (~2010) GERD (gastroesophageal reflux disease) Hypertension Surgical History Anesthesia History of fusion of cervical spine (~2009) History of spinal fusion (~2009) Status post cholecystectomy (~2004) Status post delivery (~1964) Status post delivery (~1963) Family History Brother Age: 87 Diabetes mellitus Father Stroke Mother Stroke Social History household members: none Smoking Status: Former smoker (quit 02/26/2003) second hand exposure: No alcohol intake: current substance use type: does not use Meds Home Medications and Allergies Home Medications Medication Instructions Recorded Confirmed Type latanoprost 0.005 % eye drops 1 drp [facility] HS ##0 08/08/11 06/15/23 History (Xalatan) conjugated estrogens 0.625 mg/gram 1 applic vaginal DAILY #30 grams 08/19/21 06/15/23 Rx vaginal cream (Premarin) biotin PO 08/27/22 06/15/23 History calcium carbonate-vitamin D3 PO 08/27/22 06/15/23 History loratadine 10 mg tablet 10 mg PO DAILY 02/13/23 06/15/23 History atorvastatin 10 mg tablet See Rx Instructions .Route 03/02/23 06/15/23 Rx .COMPLEX #90 tabs atenolol 50 mg tablet 75 mg (1.5 x 50 mg) PO BID #270 03/04/23 06/15/23 Rx tabs hydrochlorothiazide 25 mg tablet See Rx Instructions .Route 04/28/23 06/15/23 Rx .COMPLEX #90 tabs fluocinolone 0.01 % shampoo 30 ml topical DAILY #120 mL 04/29/23 06/15/23 Rx nitrofurantoin 100 mg PO BID #14 caps 07/07/23 07/07/23 Rx monohydrate/macrocrystals 100 mg capsule (Macrobid) phenazopyridine 100 mg tablet 100 mg PO QPC PRN urinary pain 6 07/07/23 07/07/23 Rx (Pyridium) doses #6 tabs paroxetine HCl 10 mg tablet 10 mg PO DAILY #90 tabs 07/27/23 Rx Allergies Allergy/AdvReac Type Severity Reaction Status Date / Time Sulfa (Sulfonamide Allergy Mild prickly Verified 01/11/24 09:08 Antibiotics) sensation [SULFA (SULFONAMIDE ANTIBIOTICS)] Review of Systems Review of Systems ROS: Yes All systems reviewed with the patient and are negative except as o therwise documented Exam Const General: cooperative HENMT Head: normal to inspection Eyes General: appearance normal, both eyes and all related structures Neck Neck: normal visual inspection Chest Chest: normal inspection of the chest Resp Effort & Inspection: normal respiratory effort Cardio Rate: regular rate GI Inspection: normal to inspection Skin General: no rashes or lesions noted Neuro General: patient alert and patient awake Extrem General: normal to inspection and no pedal edema Psych Appearance: grossly normal Assessment & Plan Assessment & Plan narrative: 78-year-old female with a change in bowel habit, intermittent diarrhea, personal history of colon polyps. Colonoscopy is pursued today.
--- NOTE | 2024-01-11 09:24 | PM.PREOP ---
Pre-operative Note Interval Note History & Physical reviewed/Exam performed by Physician: Yes Changes to H&P: Yes ASA Class (for procedural sedation): III
[2024-01-11 09:33] VITALS: BP 145/89; PULSE 67; RESP 18; TEMP 37; O2SAT 97
[2024-01-11] MEDS: LACTATED RINGERS 1,000 ML 42 ML IV (09:40)
--- NOTE | 2024-01-11 10:24 | PM.OP.COLON ---
Operative Date/Time/Diagnoses Date of procedure: 01/11/24 Time of procedure: 10:24 Pre-op diagnosis: Colon polyp hx. Altered bowel. Diarrhea. Post-op diagnosis: same Procedure & Clinicians Study performed: Colonoscopy with hot snare polypectomy and random biopsies. Same procedure as scheduled: Yes Indications: History of colon polyps, diarrhea Surgeon: Riky Mortensen Procedure Notes SCOAP/Timeout: Done Procedure in detail: After the risks and benefits were explained, written and verbal informed consent was obtained. The patient was brought into the procedure room and placed into the left lateral decubitus position. Please see anesthesia notes for sedation details. Digital rectal examination was accomplished. The scope was introduced into the patient and advanced under direct visualization to the cecum as identified by the appendiceal orifice and ileocecal valve. The scope was slowly withdrawn to carefully examine the mucosa for any defects or lesions. Comprehensive imaging was accomplished throughout the rectum including the dentate line. The colon was decompressed, the scope was then removed from the patient who tolerated the procedure well. Pediatric colonoscope Bowel prep adequate Scope withdrawal time: 17 minutes Sedation minutes: 24 Complications: none Impression: The patient had fairly extensive diverticulosis involving the sigmoid and ascending colon. Grade 2 internal hemorrhoids were noted. There was a 6 mm sessile polyp in the cecum removed with cold snare. In the ascending colon there were 2 sessile polyps ranging in size from 8-10 mm. These were removed with hot snare as well. No additional pathology was appreciated throughout. Random colon biopsies were taken for exclusion of microscopic colitis. Endoscopic diagnosis 1. Diverticulosis 2. Colon polyps 3. Grade 2 hemorrhoids Post-procedure Plan for aftercare: 1. Await histopathology 2. Consider repeat colonoscopy in 3 years. Disposition: PACU
[2024-01-11 10:26] VITALS: BP 114/43; PULSE 61; RESP 16; TEMP 37.2; O2SAT 99
[2024-01-11 10:31] VITALS: BP 110/52; PULSE 58; RESP 16; TEMP 37; O2SAT 97
[2024-01-11 10:36] VITALS: BP 118/59; PULSE 57; RESP 16; O2SAT 99
== END 2024-01-11 10:45 | disposition home or self-care (01) ==
PROVIDERS: PCP Family Medicine; Referring Provider Internal Medicine Gastroenterology; Visit Provider Internal Medicine Gastroenterology
PROC: 0DJD8ZZ Inspection of Lower Intestinal Tract, Via Natural or Artificial Opening Endoscopic (ICD-10-PCS; CPT 45378; principal; 2024-01-11 09:30)
DX: R19.7 Diarrhea, unspecified (principal); Z86.010 Personal history of colon polyps; K57.30 Diverticulosis of large intestine without perforation or abscess without bleeding; K64.1 Second degree hemorrhoids; D12.0 Benign neoplasm of cecum; D12.2 Benign neoplasm of ascending colon
CPT/HCPCS: 45385; 45380; J2704

== ENCOUNTER → 2024-06-09 10:29 | Outpatient (CLI) | payer MEDICARE, SELFPAY ==
[2024-06-09 11:10] LABS: Add Manual Diff / Slide Review NO; Basophils Absolute Auto 100 /uL (0-100); Basophils Percent Auto 0.7 % (0-2); Eosinophils Absolute Auto 300 /uL (0-450); Eosinophils Percent Auto 4.4 % (2-4); Hematocrit 40.7 % (36-46); Hemoglobin 13.6 g/dL (12.0-16.0); Lymphocytes Absolute Auto 2600 /uL (1100-4500); Lymphocytes Percent Auto 37.9 % (25-40); Mean Corpuscular HGB Conc 33.5 % (30-36); Mean Corpuscular Hemoglobin 31.5 PG (26-34); Mean Corpuscular Volume 94.2 fL (80-100); Monocytes Absolute Auto 400 /uL (0-900); Monocytes Percent Auto 5.9 % (3-14); Neutrophils Absolute Auto 3400 /uL (1500-7000); Neutrophils Percent Auto 51.1 % (50-75); Platelet Count 261 X10^3/uL (150-400); Red Blood Cell Count 4.33 X10^6/uL (4.0-5.2); Red Cell Distribution Width 14.8 % (11.6-14.8); White Blood Cell Count 6.7 X10^3/uL (4.5-11.0)
[2024-06-09 11:56] LABS: Alanine Aminotransferase 28 IU/L (<35); Albumin 4.6 g/dL (3.5-5.0); Albumin Globulin Ratio 1.6 (1.0-2.8); Alkaline Phosphatase 57 U/L (38-126); Aspartate Aminotransferase 41 IU/L (14-36); BUN Creatinine Ratio 25.6 (6-22); Bilirubin Total 1.5 mg/dL (0.2-1.3); Blood Urea Nitrogen 22 mg/dL (7-17); Calcium 9.5 mg/dL (8.4-10.2); Carbon Dioxide 30 mmol/L (22-32); Chloride 103 mmol/L (98-107); Cholesterol 200 mg/dL (140-199); Estimated Glomerular Filt Rate > 60 mL/min (>60); Globulin 2.8 g/dL (1.7-4.1); Glucose 104 mg/dL (80-110); HDL Cholesterol 71 mg/dL (40-60); HEMOLYSIS < 15 (0-50); LDL Cholesterol Calculated 101 mg/dL (<100); Sodium 138 mmol/L (137-145); Total Protein 7.4 g/dL (6.3-8.2); Triglycerides 138 mg/dL (35-150)
[2024-06-09 12:07] LABS: High Sensitivity CRP - Cardiac 0.4 mg/L (1.0-3.0)
[2024-06-09 12:31] LABS: Ferritin 61 ng/mL (11-264)
[2024-06-09 12:44] LABS: TSH w/ Reflex to FT4 0.49 uIU/mL (0.47-4.68)
== END ==
PROVIDERS: PCP Family Medicine; Referring Provider Family Medicine; Visit Provider Family Medicine
DX: R73.9 Hyperglycemia, unspecified (principal); D64.9 Anemia, unspecified; I10 Essential (primary) hypertension; E78.2 Mixed hyperlipidemia; R53.83 Other fatigue
CPT/HCPCS: 36415; 80053; 80061; 82728; 84443; 85025; 86140

== ENCOUNTER 2025-07-27 11:30 | Outpatient (RCR) | payer MEDICARE, SELFPAY ==
--- NOTE | 2025-07-20 16:18 | PT.OPPOC ---
Physical, Occupational & Speech Therapy At [facility] Current Diagnoses Benign paroxysmal vertigo, right ear (07/20/25) Unsteadiness on feet (07/20/25) Dizziness and giddiness (07/20/25) Visit Care Team Role Provider Type Corazon Byrnes DO Attending Provider Physician Primary Care Provider Referring Provider Specialty: Medical Address: [address] [place] [address], [address], [place], [address] Email: [email or web address] Plan Of Care PT OP: Balance, Vestibular, Neuro Start: 07/20/25 16:03 Freq: Status: Active Protocol: Document 07/20/25 13:45 DCW (Rec: 07/20/25 16:17 DCW [id number]) Out-Patient Physical Therapy Visit Information Visit Information Visit Type Initial Evaluation Visit Start Time 13:45 Visit Stop Time 14:30 Visit Number 1 Number of PROCUREMENT BUYER Visits 0 Progress Note Due 08/19/25 Evaluation Information Evaluation Date 07/20/25 Current Condition History of Current Condition Onset Date 04/08/25 Current Complaints Positional dizziness History of Current Pt is an 79 year old female complaining of a three Condition month history of motion-induced vertigo and imbalance. Pt reports symptoms began following a fall on 04/08/25, when she missed a step and fell, hitting her head. Symptoms are provoked by bending forward. Pt denies recent hearing changes, tinnitus, diplopia, dysarthria, discoordination, or decreased mentation/consciousness. Pt reports symptoms are waxing/waning in nature, have been improving with recent taking of Meclizine. Admits she has not been as active recently because she is worried about the dizziness making her fall. OP-PT Subjective Patient Comments Patient Comments It is dizzy and lightheaded and it's just terrible. Patient Reported Improving Progress Vestibular Assessment Auditory Tests Vann Test Within normal limits Rinne Test Negative Air Conduction Equal Results Visual Testing Smooth Pursuits WNL Horizontal Smooth Pursuits WNL Vertical Saccades Horizontal WNL Positional Testing [place]-Hallpike Positive Right,Negative Left,Upbeating,< 60 Seconds Canalithic Repositioning BPPV Treatment Shell Affected Canal(s) Right posterior Reps x1 Comments Modified Shell Physical Therapy Assessment Rehab Potential Rehabilitation Good Potential Evaluation Complexity Number of Personal 3 or More Factors/ Comorbidities Number of Body 4 or More Systems Impaired Clinical Unstable Presentation at Evaluation Impairments Impairments Activity Tolerance,Balance,Functional Activities, Functional Mobility,Vestibular Goals Two Impairment Positive right Susu-Hallpike Alf Goal (LTG) Pt to present with negative positional testing bilaterally LTG Duration 09/19/25 One Impairment Pt scores 52% disability on Dizziness Handicap Inventory Metaphysics Teacher Goal (LTG) Pt to score <25% on the DHI LTG Duration 09/19/25 Assessment Summary Assessment During right Susu-Hallpike test, pt complained of vertigo and demonstrated up-beating, torsional nystagmus lasting approximately 10 seconds, consistent with diagnosis of left/right-sided posterior canal BPPV , canalithiasis-type. Pt was treated with a right-sided modified Shell maneuver. Pt complained of symptoms in the first and third position, which is normally indicative of a successful treatment. Further positional testing was negative. Pt was educated on BPPV, expectations for treatment, possible recurrence ( BPPV has a ~50% recurrence rate in the five years following treatment), and post-Shell restrictions. Pt to return in ~1 week for a follow-up appointment, and intermittently afterward as indicated for treatment of BPPV. Physical Therapy Plan Frequency and Duration Frequency of 1-2x/week Treatment Plan of Care Start 07/20/25 Date Plan of Care End 09/19/25 Date Therapeutic Interventions Therapeutic Canalithic Repositioning,Home Exercise Program,Manual Interventions Therapy,Neuromuscular Re-education,Patient/Caregiver Education,Self-Care/Home Management,Soft Tissue Mobilization,Therapeutic Activities,Therapeutic Exercises,Vestibular Rehabilitation Next Visit Focus/Plan Next Note Type Treatment Note Next Visit Plan Positional testing, CRM as indicated Plan of Care Dates Plan of Care Start Date 07/20/25 Plan of Care End Date 09/19/25 Electronically Signed by: Mayur Mansfield, PT 07/20/25 0216 If you are in agreement with this Plan of Care, please return a signed and dated copy. I have reviewed this Plan of Care and certify that the skilled therapy services above are required to meet the patient?s needs. Physician Signature Date Printed Name and Credentials Clinical Instructor Signature Printed Name and Credentials
--- NOTE | 2025-07-27 11:51 | PT.OPDS ---
Current Diagnoses Benign paroxysmal vertigo, right ear (07/27/25) Unsteadiness on feet (07/27/25) Dizziness and giddiness (07/27/25) Visit Care Team Role Provider Type Corazon Byrnes DO Attending Provider Physician Primary Care Provider Referring Provider Specialty: Medical Address: [address] [place] [address], [address], [place], [address] Email: [email or web address] Visit Number Visit Number 2 Discharge Summary PT OP: Balance, Vestibular, Neuro Start: 07/20/25 16:03 Freq: Status: Active Protocol: Document 07/27/25 11:30 DCW (Rec: 07/27/25 11:51 DCW [id number]) Out-Patient Physical Therapy Visit Information Visit Information Visit Type Discharge Summary Visit Start Time 11:30 Visit Stop Time 11:45 Visit Number 2 Number of B OPERATOR Visits 0 Progress Note Due 08/19/25 Evaluation Information Evaluation Date 07/20/25 OP-PT Subjective Patient Comments Patient Comments Pt reports the overwhelming dizziness when she tilts her head back or bends forward is gone, but I have other things going on, so I still don't feel great. Vestibular Assessment Positional Testing Allamuchy-Hallpike Negative Left,Negative Right Rolling Test Negative Left,Negative Right Manual Therapy Treatment Other Other Manual Positional testing Treatments Physical Therapy Assessment Impairments Impairments Activity Tolerance,Balance,Functional Activities, Functional Mobility,Vestibular Goals Two Impairment Positive right Susu-Hallpike Skilled Nursing Goal (LTG) Pt to present with negative positional testing bilaterally LTG Duration Met One Impairment Pt scores 52% disability on Dizziness Handicap Inventory Skilled Nursing Goal (LTG) Pt to score <25% on the DHI LTG Duration 09/19/25 Assessment Summary Assessment Pt is no longer experiencing symptoms consistent with BPPV. Positional testing in negative. Pt will be discharged from skilled vestibular therapy at this time . Physical Therapy Plan Frequency and Duration Frequency of 1-2x/week Treatment Plan of Care Start 07/20/25 Date Plan of Care End 09/19/25 Date Therapeutic Interventions Therapeutic Canalithic Repositioning,Home Exercise Program,Manual Interventions Therapy,Neuromuscular Re-education,Patient/Caregiver Education,Self-Care/Home Management,Soft Tissue Mobilization,Therapeutic Activities,Therapeutic Exercises,Vestibular Rehabilitation Discharge Physical Therapy Discharge Reasons Goals Met Next Visit Focus/Plan Next Note Type Discharge Summary
== END 2025-10-03 08:41 | disposition home or self-care (01) ==
LOC: PHYS 11:30
PROVIDERS: PCP Family Medicine; Referring Provider Family Medicine; Visit Provider Family Medicine
DX: R26.81 Unsteadiness on feet (principal); H81.11 Benign paroxysmal vertigo, right ear
CPT/HCPCS: 97140; 97163